=== PATIENT | male | born 1975 | race African-American/Black ===

== ENCOUNTER 2022-07-28 16:37 | Emergency (ER) | payer MEDICAID ==
[~2022-07-28] VITALS: Ht 172.7 cm; Wt 72.7 kg
[2022-07-28 17:39] VITALS: BP 158/97
== END 2022-07-28 20:40 | disposition home or self-care (01) ==
LOC: EMS 16:40
DX: F10.129 Alcohol abuse with intoxication, unspecified (principal)
CPT/HCPCS: 99283; Z7502

== ENCOUNTER 2022-09-15 10:53 | Emergency (ER) | payer MEDICAID ==
[~2022-09-15] VITALS: Ht 180.3 cm; Wt 81.8 kg
[2022-09-15 10:59] VITALS: BP 129/82
== END 2022-09-15 12:09 | disposition home or self-care (01) ==
LOC: EMS 11:06
DX: S00.90XD Unspecified superficial injury of unspecified part of head, subsequent encounter (principal); F10.90 Alcohol use, unspecified, uncomplicated; Z48.02 Encounter for removal of sutures; X58.XXXD Exposure to other specified factors, subsequent encounter
CPT/HCPCS: 99281; Z7502